=== PATIENT | female | born 1960 | race Caucasian/White ===

== ENCOUNTER → 2016-10-16 | Outpatient (CLI) | payer OTHER ==
--- NOTE | 2016-10-16 11:38 | WOMENS IMAGING REPORT ---
EXAM DESCRIPTION: BILAT SCREENING MAMMO W/CAD COMPLETED DATE/TIME: 10/16/2016 11:17 am REASON FOR STUDY: Z12.31, ROUTINE SCREENING MAMMO Z12.31 ENCNTR SCREEN MAMMOGRAM FOR MALIGNANT NEOP LASM OF BETTY COMPARISON: None. TECHNIQUE: Standard craniocaudal and mediolateral oblique views of each breast recorded using [employer] acquisition. LIMITATIONS: None. FINDINGS: No masses, calcifications or architectural distortion. No areas of suspicion. Read with the assistance of CAD. .[facility] - R2 Cenova Version 1.3 .[facility] - R2 Cenova Version 1.3 .[facility] - R2 Cenova Version 2.4 .[facility] [place] - R2 Cenova Version 2.4 .[facility] - R2 [employer] Version 9.2 IMPRESSION: NORMAL MAMMOGRAM. BIRADS 1. BREAST DENSITY: b. There are scattered areas of fibroglandular density. BIRAD: 1 NEGATIVE RECOMMENDATION: ROUTINE SCREENING COMMENT: The patient has been notified of the results by letter per MQSA requirements. Additional no tification policies are in place for contacting patient with suspicious or incomplete findings. Quality ID #[id number]: The [employer] recommends an annual screening mammogram for women aged 40 years or over. This facility utilizes a reminder system to ensure that all patients receive reminder letters, and/or direct phone calls for appointments. This includes reminders for routine scr eening mammograms, diagnostic mammograms, or other Breast Imaging Interventions when appropriate. Th is patient will be placed in the appropriate reminder system. The [employer] (ACR) has developed recommendations for screening MRI of the breast s in certain patient populations, to be used in conjunction with mammography. Breast MRI surveillanc e may be appropriate for women with more than 20% lifetime risk of developing breast cancer as deter mined by genetic testing, significant family history of the disease, or history of mantle radiation f or Hodgkins Disease. ACR Practice Guidelines 2008. TECHNICAL DOCUMENTATION: FINDING NUMBER: (1) ASSESSMENT: (1) JOB ID: [id number] [employer]- All Rights Reserved
== END ==
LOC: WI 12:56
PROVIDERS: ATTEND Clinical Nurse Specialist Adult Health
DX: Z12.31 Encounter for screening mammogram for malignant neoplasm of breast (principal)
CPT/HCPCS: 77067; G0202

== ENCOUNTER 2017-04-14 13:28 | Emergency (ER) | payer OTHER ==
[2017-04-14 14:32] VITALS: BP 180/93
--- NOTE | 2017-04-14 14:33 | ER Document Report ---
ED Blood Pressure Problem - General Chief Complaint: High Blood Pressure Stated Complaint: POSSIBLE HIGH BLOOD PRESSURE Time Seen by Provider: 04/14/17 14:29 Mode of Arrival: Ambulatory Information source: Patient TRAVEL OUTSIDE OF THE [place] IN LAST 30 DAYS: No - Related Data Allergies/Adverse Reactions: egg Allergy (Verified 04/14/17 13:29) Home Medications: Current Home Medications Dextran 70/Hypromellose [Artificial Tears] 1 each OP PRN PRN 04/14/17 [History] Diltiazem HCl [Diltiazem ER] 30 mg PO DAILY 04/14/17 [History] Levothyroxine Sodium [Synthroid 0.025 mg Tablet] 0.025 mg PO DAILY 04/14/17 [ History] Past Medical History - General Information source: Patient - Social History Smoking Status: Never Smoker Frequency of alcohol use: Social Drug Abuse: None Family History: Reviewed & Not Pertinent Patient has suicidal ideation: No Patient has homicidal ideation: No - Past Medical History Cardiac Medical History: Reports: Hx Hypertension Renal/ Medical History: Denies: Hx Peritoneal Dialysis Past Surgical History: Reports: Hx Tubal Ligation Review of Systems - Review of Systems Constitutional: denies: Chills, Fever Cardiovascular: denies: Chest pain, Palpitations Respiratory: denies: Cough, Short of breath Gastrointestinal: denies: Abdominal pain, Vomiting Physical Exam - Vital signs Vitals: Temp Pulse Resp BP Pulse Ox 97.8 F 85 16 186/89 H 99 04/14/17 13:35 04/14/17 13:35 04/14/17 13:35 04/14/17 13:35 04/14/17 13:35 Interpretation: Hypertensive - General General appearance: Appears well, Alert - HEENT Head: Normocephalic, Atraumatic Eyes: Normal Pupils: PERRL - Respiratory Respiratory status: No respiratory distress Chest status: Nontender Breath sounds: Normal Chest palpation: Normal - Cardiovascular Rhythm: Regular Heart sounds: Normal auscultation Murmur: No - Abdominal Inspection: Normal Distension: No distension Bowel sounds: Normal Tenderness: Nontender Organomegaly: No organomegaly - Back Back: Normal, Nontender - Extremities General upper extremity: Normal inspection, Nontender, Normal color, Normal ROM , Normal temperature General lower extremity: Normal inspection, Nontender, Normal color, Normal ROM , Normal temperature, Normal weight bearing. No: Marlon's sign - Neurological Neuro grossly intact: Yes Cognition: Normal Orientation: AAOx4 Esha Coma Scale Eye Opening: Spontaneous [place] Coma Scale Verbal: Oriented Esha Coma Scale Motor: Obeys Commands Esha Coma Scale Total: 15 Speech: Normal Motor strength normal: LUE, RUE, LLE, RLE Sensory: Normal - Psychological Associated symptoms: Normal affect, Normal mood - Skin Skin Temperature: Warm Skin Moisture: Dry Skin Color: Normal Course - Vital Signs Vital signs: Temp Pulse Resp BP Pulse Ox 97.8 F 85 16 186/89 H 99 04/14/17 13:35 04/14/17 13:35 04/14/17 13:35 04/14/17 13:35 04/14/17 13:35 Discharge - Discharge Clinical Impression: Uncontrolled hypertension Condition: Stable Disposition: HOME, SELF-CARE Instructions: High Blood Pressure ([facility]) Additional Instructions: Please have your family physician at the [place] recheck your blood pressure within 1 week. Forms: Elevated Blood Pressure
== END 2017-04-14 14:37 | disposition home or self-care (01) ==
LOC: ER 13:28
DX: I10 Essential (primary) hypertension (principal); Z98.51 Tubal ligation status; Z91.012 Allergy to eggs
CPT/HCPCS: 99283

== ENCOUNTER 2019-03-28 19:43 | Emergency (ER) | payer OTHER ==
--- NOTE | 2019-03-28 19:54 | ER Document Report ---
ED Medical Screen (RME) - General Stated Complaint: RIGHT SIDE ABDOMINAL PAIN Time Seen by Provider: 03/28/19 19:48 Primary Care Provider: DILIP MURILLO NP [Primary Care Provider] - Follow up as needed Mode of Arrival: Ambulatory Notes: 58-year-old female presents emergency department with complaints of right sided pain. Reports she has been dealing with this since March 11. She went to urgent care. She was treated for UTI. She returned 7 days later they did blood work for possible appendicitis. And she returned for third visit. She reports she recently started taking high blood pressure medication and the pain was worse today so she came to the emergency department. she denies fever vomiting diarrhea. Denies pain with void. She is unsure what triggers the pain. Patient still has her gallbladder and appendix. She reports the pain started in her right lower quad ending sometimes radiates up to the right upper quad. She also reports she sometimes have lightening sharp pains to her right hip. Upon assessment patient has right upper quad epigastric pain. I have greeted and performed a rapid initial assessment of this patient. A comprehensive ED assessment and evaluation of the patient, analysis of test results and completion of the medical decision making process will be conducted by additional ED providers. Dictation of this chart was performed using voice recognition software; therefore, there may be some unintended grammatical errors. TRAVEL OUTSIDE OF THE [place] IN LAST 30 DAYS: No - Related Data Allergies/Adverse Reactions: egg Allergy (Verified 04/14/17 13:29) Past Medical History - Past Medical History Cardiac Medical History: Reports: Hx Hypertension Renal/ Medical History: Denies: Hx Peritoneal Dialysis Past Surgical History: Reports: Hx Tubal Ligation Doctor's Discharge - Discharge Referrals: DILIP MURILLO NP [Primary Care Provider] - Follow up as needed
[2019-03-28 20:21] LABS: ABSOLUTE BASOPHILS # (AUTO) 0.1 10^3/uL (0.0-0.2); ABSOLUTE EOSINOPHILS # (AUTO) 0.2 10^3/uL (0.0-0.6); ABSOLUTE LYMPHOCYTES (AUTO) 2.6 10^3/uL (0.5-4.7); ABSOLUTE MONOCYTES (AUTO) 0.6 10^3/uL (0.1-1.4); ABSOLUTE NEUT (AUTO) 4.2 10^3/uL (1.7-8.2); APPEARANCE,URINE CLEAR; BASOPHILS % (AUTO) 0.9 % (0-2); BILIRUBIN,URINE NEGATIVE (NEGATIVE); COLOR,URINE COLORLESS; EOSINOPHILS % (AUTO) 2.6 % (0-6); GLUCOSE, URINE NEGATIVE (NEGATIVE); HEMATOCRIT 41.7 % (36.0-47.0); HEMOGLOBIN 14.2 g/dL (12.0-15.5); KETONES,URINE NEGATIVE (NEGATIVE); LEUKOCYTE ESTERASE,URINE NEGATIVE (NEGATIVE); LYMPHOCYTES % (AUTO) 33.8 % (13-45); MEAN CORPUSCULAR HGB CONC 34.2 g/dL (32.0-36.0); MEAN CORPUSCULAR VOLUME 88 fl (80-97); MONOCYTES % (AUTO) 7.9 % (3-13); NITRITE,URINE NEGATIVE (NEGATIVE); PLATELET COUNT 289 10^3/uL (150-450); PROTEIN,URINE NEGATIVE (NEGATIVE); RED BLOOD COUNT 4.74 10^6/uL (3.72-5.28); RED CELL DISTRIBUTION WIDTH 13.2 % (11.5-14.0); SEGMENTED NEUTROPHILS % (AUTO) 54.8 % (42-78); TOTAL CELLS COUNTED % (AUTO) 100 %; URINE SPECIFIC GRAVITY 1.003; UROBILINOGEN,URINE NEGATIVE mg/dL (<2.0); WHITE BLOOD COUNT 7.7 10^3/uL (4.0-10.5)
[2019-03-28 20:36] LABS: ALBUMIN 4.7 g/dL (3.5-5.0); ALKALINE PHOSPHATASE 78 U/L (38-126); ANION GAP 9 (5-19); ASPARTATE AMINO TRANSFERASE 23 U/L (14-36); BILIRUBIN,DIRECT 0.1 mg/dL (0.0-0.4); BILIRUBIN,TOTAL 0.3 mg/dL (0.2-1.3); BLOOD UREA NITROGEN 14 mg/dL (7-20); CALCIUM 9.6 mg/dL (8.4-10.2); CARBON DIOXIDE 30 mmol/L (22-30); CHLORIDE 102 mmol/L (98-107); GLUCOSE 112 mg/dL (75-110); POTASSIUM 4.2 mmol/L (3.6-5.0); TOTAL PROTEIN 8.2 g/dL (6.3-8.2)
[2019-03-28 21:24] VITALS: BP 188/100
--- NOTE | 2019-03-28 21:55 | RADIOLOGY REPORT (SQ) ---
EXAM DESCRIPTION: RadLex: US ABDOMEN LIMITED CLINICAL HISTORY: 58 years Female; right side pain TECHNIQUE: Right upper quadrant ultrasound was performed. COMPARISON: None. FINDINGS: Pancreas: Visualized portions are unremarkable. Liver: 11.6 cm long. No ductal distention. Portal venous flow is hepatopedal, normal. Gallbladder: normal with no gallstones or sonographic evidence for acute cholecystitis. No pericholecystic fluid. No sonographic Burgos's sign. Common bile duct: 3 mm. Right kidney: 9.9 x 4 x 5.3 cm. No hydronephrosis. Limited evaluation of the right lower quadrant in the area of symptoms was performed. Appendix not visualized. No free fluid. IMPRESSION: 1. Normal right upper quadrant ultrasound.
--- NOTE | 2019-03-28 22:44 | ER Document Report ---
ED GI/ - General Chief Complaint: Abdominal Pain Stated Complaint: RIGHT SIDE ABDOMINAL PAIN Time Seen by Provider: 03/28/19 19:48 Primary Care Provider: DILIP MURILLO NP [Primary Care Provider] - Follow up as needed Mode of Arrival: Ambulatory Notes: RME NOTE: 58-year-old female presents emergency department with complaints of right sided pain. Reports she has been dealing with this since March 11. She went to urgent care. She was treated for UTI. She returned 7 days later they did blood work for possible appendicitis. And she returned for third visit. She reports she recently started taking high blood pressure medication and the pain was worse today so she came to the emergency department. she denies fever vomiting diarrhea. Denies pain with void. She is unsure what triggers the pain. Patient still has her gallbladder and appendix. She reports the pain started in her right lower quad ending sometimes radiates up to the right upper quad. She also reports she sometimes have lightening sharp pains to her right hip. Upon assessment patient has right upper quad epigastric pain. MY HPI: Upon my assessment patient continues with slight right upper quadrant abdominal pain. She is denying any right lower pain or pelvic pain. Patient's denying any nausea, vomiting, diarrhea. She is denying any dysuria or fevers. States the pain is been intermittent since [place] when she presented to an urgent care. Patient voices she does have a newly diagnosed history of hypertension. States is on carvedilol. States she does take it twice a day and has not yet taken her nighttime medication. Patient voices her last menstrual cycle was 6 years ago. Patient is denying any abdominal surgeries. TRAVEL OUTSIDE OF THE [place] IN LAST 30 DAYS: No - Related Data Allergies/Adverse Reactions: egg Allergy (Verified 04/14/17 13:29) Home Medications: recent antibiotics. bp med Past Medical History - General Information source: Patient - Social History Smoking Status: Never Smoker Frequency of alcohol use: Rare Drug Abuse: None Family History: Reviewed & Not Pertinent Patient has suicidal ideation: No Patient has homicidal ideation: No - Past Medical History Cardiac Medical History: Reports: Hx Hypertension Renal/ Medical History: Denies: Hx Peritoneal Dialysis Past Surgical History: Reports: Hx Tubal Ligation Review of Systems - Review of Systems Constitutional: denies: Fever EENT: No symptoms reported Cardiovascular: No symptoms reported Respiratory: No symptoms reported Gastrointestinal: See HPI Genitourinary: See HPI Female Genitourinary: See HPI Musculoskeletal: No symptoms reported Skin: No symptoms reported Hematologic/Lymphatic: No symptoms reported Neurological/Psychological: No symptoms reported Physical Exam - Vital signs Vitals: Temp Pulse Resp BP Pulse Ox 98.2 F 82 18 211/99 H 99 03/28/19 19:50 03/28/19 19:50 03/28/19 19:50 03/28/19 19:50 03/28/19 19:50 - Notes Notes: GENERAL: Alert, interacts well. No acute distress. HEAD: Normocephalic, atraumatic. EYES: Pupils equal, round, and reactive to light. Extraocular movements intact. ENT: Oral mucosa moist, tongue midline. NECK: Full range of motion. Supple. Trachea midline. LUNGS: Clear to auscultation bilaterally, no wheezes, rales, or rhonchi. No respiratory distress. HEART: Regular rate and rhythm. No murmur ABDOMEN: Soft, slight right upper quadrant pain noted, otherwise abdominal exam benign. No pelvic pain noted bilaterally. Non-distended. Bowel sounds present in all 4 quadrants. EXTREMITIES: Moves all 4 extremities spontaneously. No edema, normal radial and dorsalis pedis pulses bilaterally. No cyanosis. BACK: no cervical, thoracic, lumbar midline tenderness. No saddle anesthesia, normal distal neurovascular exam. No CVA tenderness noted bilaterally. NEUROLOGICAL: Alert and oriented x3. Normal speech. cranial nerves II through XII grossly intact PSYCH: Normal affect, normal mood. SKIN: Warm, dry, normal turgor. No rashes or lesions noted. Course - Re-evaluation Re-evalutation: Laboratory 03/28/19 03/28/19 03/28/19 20:00 20:00 20:00 WBC 7.7 RBC 4.74 Hgb 14.2 Hct 41.7 MCV 88 MCH 30.0 MCHC 34.2 RDW 13.2 Plt Count 289 Lymph % (Auto) 33.8 [place] % (Auto) 7.9 Eos % (Auto) 2.6 Baso % (Auto) 0.9 Absolute Neuts (auto) 4.2 Absolute Lymphs (auto) 2.6 Absolute Monos (auto) 0.6 Absolute Eos (auto) 0.2 Absolute Basos (auto) 0.1 Seg Neutrophils % 54.8 Sodium 141.1 Potassium 4.2 Chloride 102 Carbon Dioxide 30 Anion Gap 9 BUN 14 Creatinine 0.84 Est GFR ( Amer) > 60 Est GFR (MDRD) Non-Af > 60 Glucose 112 H Calcium 9.6 Total Bilirubin 0.3 Direct Bilirubin 0.1 Neonat Total Bilirubin Not Reportable Neonat Direct Bilirubin Not Reportable Neonat Indirect Bili Not Reportable AST 23 ALT 18 Alkaline Phosphatase 78 Total Protein 8.2 Albumin 4.7 Lipase 229.6 Urine Color COLORLESS Urine Appearance CLEAR Urine pH 8.0 Ur Specific [place] 1.003 Urine Protein NEGATIVE Urine Glucose (UA) NEGATIVE Urine Ketones NEGATIVE Urine Blood NEGATIVE Urine Nitrite NEGATIVE Urine Bilirubin NEGATIVE Urine Urobilinogen NEGATIVE Ur Leukocyte Esterase NEGATIVE Urine WBC (Auto) 1 Urine RBC (Auto) 0 Squamous Epi Cells Auto <1 Urine Mucus (Auto) RARE Urine Ascorbic Acid NEGATIVE Abdomen Ultrasound 03/28/19 19:53 IMPRESSION: 1. Normal right upper quadrant ultrasound. I discussed patient's negative ultrasound and lab work with her at bedside. No signs of leukocytosis, no signs of electrolyte abnormalities. Patient initially declined any pain management in the emergency department. Patient voices she was follow-up with primary care provider. Patient voices "I just wanted to make sure it was not my gallbladder." Patient continues to deny any right-sided lower abdominal pain or pelvic pain. Discussed with her close follow-up with primary care provider with close return precautions. Patient's blood pressure was noted to be elevated at today's visit. She did take her home blood pressure medication while in the emergency department. Patient's denying any headache, lightheadedness, dizziness, chest pain, shortness of breath. She is denying any weakness or numbness. Discussed with patient her elevated blood pressure readings and again need to follow-up with primary care provider. Patient stable for discharge. - Vital Signs Vital signs: Temp Pulse Resp BP Pulse Ox 98.3 F 89 18 188/100 H 99 03/28/19 21:18 03/28/19 21:18 03/28/19 21:18 03/28/19 21:18 03/28/19 21:18 - Laboratory Result Diagrams: 03/28/19 20:00 03/28/19 20:00 Laboratory results interpreted by me: 03/28/19 20:00 Glucose 112 H Discharge - Discharge Clinical Impression: Abdominal pain Qualifiers: Abdominal location: right upper quadrant Qualified Code(s): R10.11 - Right upper quadrant pain Condition: Stable Disposition: HOME, SELF-CARE Instructions: Abdominal Pain ([facility]) Additional Instructions: As we discussed you have been seen and treated in the emergency department for your abdominal pain. Your labs revealed no signs of abnormalities. Your ultrasound was also within normal limits. Your blood pressure was noted to be elevated at today's visit. Please make sure you are taking your medications as prescribed. Please also make sure you follow-up with your primary care provider in the next 12 to 24 hours. Return to the emergency department for any concerns. Forms: Elevated Blood Pressure Referrals: DILIP MURILLO NP [Primary Care Provider] - Follow up as needed
== END 2019-03-28 22:55 | disposition home or self-care (01) ==
LOC: ER 19:43
DX: R10.11 Right upper quadrant pain (principal); I10 Essential (primary) hypertension; Z79.899 Other long term (current) drug therapy
CPT/HCPCS: 36415; 76705; 80053; 81001; 83690; 85025; 99284